=== PATIENT | female | born 1995 | race African-American/Black ===

== ENCOUNTER 2016-11-05 18:46 | Emergency (ER) | payer MEDICAID ==
[2013-03-21 21:02] VITALS: BMI 41.0
[~2016-11-05 18:46] MED LIST: FERROUS SULFAT325 MG PO; MOTRIN600 MG PO; PERCOCET 5/3251 TA1 PO; PRENATAL COMPLE1 TAB PO
[2016-11-05 20:19] LABS: BASOPHILS 0.4 % (0.0-2.0); EOSINOPHILS 1.3 % (0-7); HEMATOCRIT 38.5 % (36.0-48.0); HEMOGLOBIN 12.4 g/dL (12-16); IMMATURE GRANULOCYTES 0.4 % (0-5); LYMPHOCYTES 41.2 % (15-50); MCH 26.8 pg (26.0-34.0); MCHC 32.2 g/dL (31.0-37.0); MCV 83.3 fL (80.0-100.0); MEAN PLATELET VOLUME 10.2 fL (7.4-10.4); MONOCYTES 7.4 % (2-11); NEUTROPHILS 49.3 % (40-80); PLATELET COUNT 221 10x3/uL (130-400); RBC 4.62 10x6/uL (4.00-5.40); RDW 14.1 % (11.5-14.5); WBC 6.7 10x3/uL (4.8-10.8)
[2016-11-05 20:27] LABS: ALBUMIN 3.3 g/dL (3.4-5.0); ALKALINE PHOSPHATASE 85 U/L (46-116); ALT (SGPT) 26 U/L (10-68); BILIRUBIN - TOTAL 0.36 mg/dL (0.2-1.3); CALC OSMOLALITY 275 mosm/kg (275-300); CALCIUM 9.2 mg/dL (8.5-10.1); CARBON DIOXIDE 25.7 mmol/L (21.0-32.0); CHLORIDE - SERUM 104 mmol/L (98-107); CREATININE - SERUM 0.6 mg/dL (0.6-1.3); GLUCOSE 91 mg/dL (74-106); POTASSIUM - SERUM 3.9 mmol/L (3.5-5.1); PROTEIN - SERUM 6.9 g/dL (6.4-8.2); SODIUM 139 mmol/L (136-145); UREA NITROGEN 6 mg/dL (7-18); eGFR NON AFRICAN AMERICAN > 90 mL/min (90-120)
== END 2016-11-05 20:56 | disposition home or self-care (01) ==
LOC: D.ER 18:46
PROVIDERS: Emergency Medicine
DX: R55 Syncope and collapse (principal); R00.1 Bradycardia, unspecified

== ENCOUNTER 2016-11-29 19:25 | Emergency (ER) | payer MEDICAID ==
[2013-03-21 21:02] VITALS: BMI 41.0
[2016-11-29 20:00] LABS: BASOPHILS 0.3 % (0.0-2.0); EOSINOPHILS 0.9 % (0-7); HEMATOCRIT 40.9 % (36.0-48.0); HEMOGLOBIN 13.5 g/dL (12-16); IMMATURE GRANULOCYTES 0.1 % (0-5); LYMPHOCYTES 30.4 % (15-50); MCH 26.9 pg (26.0-34.0); MCV 81.6 fL (80.0-100.0); MEAN PLATELET VOLUME 10.4 fL (7.4-10.4); MONOCYTES 6.6 % (2-11); NEUTROPHILS 61.7 % (40-80); PLATELET COUNT 248 10x3/uL (130-400); RBC 5.01 10x6/uL (4.00-5.40); RDW 13.4 % (11.5-14.5); WBC 6.7 10x3/uL (4.8-10.8)
[2016-11-29 20:09] LABS: CALC OSMOLALITY 273 mosm/kg (275-300); CALCIUM 9.7 mg/dL (8.5-10.1); CARBON DIOXIDE 28.5 mmol/L (21.0-32.0); CHLORIDE - SERUM 103 mmol/L (98-107); CREATININE - SERUM 0.6 mg/dL (0.6-1.3); GLUCOSE 100 mg/dL (74-106); POTASSIUM - SERUM 3.3 mmol/L (3.5-5.1); SODIUM 138 mmol/L (136-145); UREA NITROGEN 6 mg/dL (7-18); eGFR NON AFRICAN AMERICAN > 90 mL/min (90-120)
[2016-11-29 20:27] LABS: APPEARANCE CLEAR (CLEAR); BACTERIA MODERATE /hpf (NONE SEEN); BILIRUBIN NEGATIVE (NEGATIVE); COLOR YELLOW (YELLOW); GLUCOSE NEGATIVE (NEGATIVE); KETONE SMALL mg/dL (NEGATIVE); LEUKOCYTE ESTERASE TRACE (NEGATIVE); NITRITE NEGATIVE (NEGATIVE); PROTEIN NEGATIVE (NEGATIVE); RED CELLS - URINE OCC /hpf (0-5); SPECIFIC GRAVITY 1.015 (1.005-1.020)
== END 2016-11-29 20:45 | disposition home or self-care (01) ==
LOC: D.ER 19:25
PROVIDERS: Nurse Practitioner Acute Care
DX: N39.0 Urinary tract infection, site not specified (principal)

== ENCOUNTER 2016-11-30 18:39 | Emergency (ER) | payer MEDICAID ==
[2013-03-21 21:02] VITALS: BMI 41.0
== END 2016-11-30 21:08 | disposition home or self-care (01) ==
LOC: D.ER 18:39
DX: B34.9 Viral infection, unspecified (principal)

== ENCOUNTER 2016-12-06 20:55 | Emergency (ER) | payer MEDICAID ==
[2013-03-21 21:02] VITALS: BMI 41.0
== END 2016-12-06 22:52 | disposition home or self-care (01) ==
LOC: D.ER 20:55
DX: J01.90 Acute sinusitis, unspecified (principal); J20.9 Acute bronchitis, unspecified

== ENCOUNTER 2016-12-12 18:18 | Emergency (ER) | payer MEDICAID ==
[2013-03-21 21:02] VITALS: BMI 41.0
== END 2016-12-12 19:53 | disposition home or self-care (01) ==
LOC: D.ER 18:18
DX: J01.90 Acute sinusitis, unspecified (principal); F41.9 Anxiety disorder, unspecified

== ENCOUNTER 2016-12-26 20:02 | Emergency (ER) | payer MEDICAID ==
[2013-03-21 21:02] VITALS: BMI 41.0
== END 2016-12-26 21:40 | disposition home or self-care (01) ==
LOC: D.ER 20:02
DX: M54.5 Low back pain (principal)

== ENCOUNTER 2016-12-30 17:05 | Emergency (ER) | payer MEDICAID ==
[2013-03-21 21:02] VITALS: BMI 41.0
== END 2016-12-30 21:36 | disposition home or self-care (01) ==
LOC: D.ER 17:05
DX: S93.401A Sprain of unspecified ligament of right ankle, initial encounter (principal); W19.XXXA Unspecified fall, initial encounter; Y93.6A Activity, physical games generally associated with school recess, summer camp and children; Y92.830 Public park as the place of occurrence of the external cause; M25.471 Effusion, right ankle

== ENCOUNTER 2017-01-06 21:07 | Emergency (ER) | payer MEDICAID ==
[2013-03-21 21:02] VITALS: BMI 41.0
== END 2017-01-07 01:00 | disposition home or self-care (01) ==
LOC: D.ER 21:07
DX: S39.012A Strain of muscle, fascia and tendon of lower back, initial encounter (principal); X58.XXXA Exposure to other specified factors, initial encounter; Y93.89 Activity, other specified; Y92.019 Unspecified place in single-family (private) house as the place of occurrence of the external cause; M62.830 Muscle spasm of back

== ENCOUNTER 2017-01-20 10:27 | Emergency (ER) | payer MEDICAID ==
[2013-03-21 21:02] VITALS: BMI 41.0
[2017-01-20 11:05] LABS: HCG URINE NEGATIVE (NEGATIVE)
[2017-01-20 11:11] LABS: APPEARANCE HAZY (CLEAR); BILIRUBIN NEGATIVE (NEGATIVE); COLOR YELLOW (YELLOW); GLUCOSE NEGATIVE (NEGATIVE); KETONE NEGATIVE (NEGATIVE); LEUKOCYTE ESTERASE TRACE (NEGATIVE); NITRITE NEGATIVE (NEGATIVE); PROTEIN NEGATIVE (NEGATIVE); SPECIFIC GRAVITY 1.015 (1.005-1.020); UROBILINOGEN NORMAL (NORMAL)
[2017-01-20 11:12] LABS: BACTERIA MODERATE /hpf (NONE SEEN); EPITHELIAL CELLS 0-5 /hpf (0-5); RED CELLS - URINE OCC /hpf (0-5); WHITE CELLS - URINE 0-5 /hpf (0-5)
== END 2017-01-20 11:36 | disposition home or self-care (01) ==
LOC: D.ER 10:27
PROVIDERS: Emergency Medicine
DX: M54.5 Low back pain (principal); G89.29 Other chronic pain; J30.9 Allergic rhinitis, unspecified

== ENCOUNTER 2017-01-24 02:25 | Emergency (ER) | payer MEDICAID ==
[2013-03-21 21:02] VITALS: BMI 41.0
== END 2017-01-24 03:21 | disposition home or self-care (01) ==
LOC: D.ER 02:25
DX: S83.91XA Sprain of unspecified site of right knee, initial encounter (principal); X58.XXXA Exposure to other specified factors, initial encounter; Y93.89 Activity, other specified; Y92.89 Other specified places as the place of occurrence of the external cause

== ENCOUNTER 2017-01-26 00:10 | Emergency (ER) | payer MEDICAID ==
[2013-03-21 21:02] VITALS: BMI 41.0
== END 2017-01-26 02:10 | disposition home or self-care (01) ==
LOC: D.ER 00:10
DX: M25.561 Pain in right knee (principal)

== ENCOUNTER 2017-05-02 00:25 | Emergency (ER) | payer MEDICAID ==
[2013-03-21 21:02] VITALS: BMI 41.0
== END 2017-05-02 01:43 | disposition home or self-care (01) ==
LOC: D.ER 00:25
DX: H69.90 Unspecified Eustachian tube disorder, unspecified ear (principal); R42 Dizziness and giddiness

== ENCOUNTER 2019-01-08 16:12 | Emergency (ER) | payer MEDICAID ==
[~2019-01-08] VITALS: Ht 165.1 cm; Wt 127.3 kg
[2019-01-08 16:40] VITALS: Ht 165.1 cm; Wt 127.3 kg
[2019-01-08] MEDS ORDERED: AMOXICILLIN500 M1 PO (18:01)
[2019-01-08] MEDS ORDERED: PHENERGAN DM SYR5 ML PO (18:01)
[2019-01-08 18:14] VITALS: BP 136/84
== END 2019-01-08 18:14 | disposition home or self-care (01) ==
LOC: D.ER 16:12
DX: H66.92 Otitis media, unspecified, left ear (principal); J06.9 Acute upper respiratory infection, unspecified; R05 Cough; R07.89 Other chest pain; R09.89 Other specified symptoms and signs involving the circulatory and respiratory systems